=== PATIENT | female | born 1985 | race Caucasian/White ===

== ENCOUNTER 2024-03-13 22:32 | Inpatient (IN) | payer OTHER ==
[~2024-03-13] VITALS: Ht 157.5 cm; Wt 60.8 kg
[2024-03-13 23:28] LABS: BASOPHILS # (AUTO) 0.1 K/uL (0.0-0.2); BASOPHILS % (AUTO) 1.5 % (0.0-2.0); EOSINOPHILS # (AUTO) 0.1 K/uL (0.0-0.7); EOSINOPHILS % (AUTO) 2.1 % (0.0-6.0); HEMATOCRIT 32 % (33-45); HEMOGLOBIN 10.1 g/dL (11.5-14.8); LYMPHOCYTES # (AUTO) 1.2 K/uL (0.8-4.8); LYMPHOCYTES % (AUTO) 32.2 % (20.0-44.0); MEAN CORPUSCULAR HEMOGLOBIN 27 PG (26.0-33.0); MEAN CORPUSCULAR HGB CONC 31 g/dl (31.0-36.0); MEAN CORPUSCULAR VOLUME 86 fL (82-100); MONOCYTES # (AUTO) 0.2 K/uL (0.1-1.30); NEUTROPHILS # (AUTO) 2.2 K/uL (1.8-8.9); NEUTROPHILS % (AUTO) 58.2 % (43.0-81.0); PLATELET COUNT (AUTO) 218 K/uL (150-450); RED BLOOD CELL COUNT(AUTO) 3.74 MIL/uL (4.0-5.2); RED CELL DISTRIBUTION WIDTH 16.2 % (11.5-15.0); WHITE BLOOD COUNT (AUTO) 3.8 K/uL (4.3-11.0)
[2024-03-13 23:42] LABS: APPEARANCE,URINE CLEAR (CLEAR); BILIRUBIN,URINE 1+ (NEGATIVE); BLOOD, URINE NEGATIVE Ery/uL (NEGATIVE); COLOR,URINE YELLOW (YELLOW); KETONES,URINE NEGATIVE (NEGATIVE); LEUKOCYTE ESTERASE ,URINE TRACE (NEGATIVE); NITRITE, URINE NEGATIVE (NEGATIVE); PH,URINE 8.5 (5.0-8.0); PROTEIN,URINE NEGATIVE (NEGATIVE); UGLUCOSE NEGATIVE (NEGATIVE)
[2024-03-13 23:43] LABS: CARBON DIOXIDE 29 mmol/L (21-32); CHLORIDE 102 mmol/L (98-107); CREATININE 0.6 mg/dL (0.6-1.3); GLUCOSE 108 mg/dL (74-106); POTASSIUM 3.9 mmol/L (3.5-5.1); SODIUM SERUM 138 mmol/L (136-145); UREA NITROGEN, BLOOD 11 mg/dL (7-18)
[2024-03-13 23:44] LABS: PREGNANCY TEST URINE QUAL NEGATIVE (NEGATIVE)
[2024-03-13 23:55] LABS: AMPHETAMINE, URINE NEGATIVE (NEGATIVE); BARBITURATE, URINE NEGATIVE (NEGATIVE); CANNABINOID, URINE NEGATIVE (NEGATIVE); COCCAINE, URINE NEGATIVE (NEGATIVE); OPIATE, URINE NEGATIVE (NEGATIVE); PHENCYCLIDINE SCREEN,URINE NEGATIVE (NEGATIVE)
[2024-03-13 23:56] LABS: ALANINE AMINOTRANSFERASE 86 U/L (12-78); ALBUMIN 2.9 g/dL (3.4-5.0); ALCOHOL, BLOOD < 3 mg/dL (0-10); ALKALINE PHOSPHATASE 96 U/L (46-116); ASPARTATE AMINOTRANSFERASE 144 U/L (15-37); BILIRUBIN,TOTAL 1.1 mg/dL (0.2-1.0); NT-PRO BNP 3872 pg/mL (0-125); TOTAL PROTEIN, SERUM 6.8 g/dL (6.4-8.2)
[2024-03-13 23:56] LABS: BENZODIAZEPINE, URINE POSITIVE (NEGATIVE)
[2024-03-14 00:21] LABS: ADD URINE CULTURE NO; BACTERIA,URINE 1+ /HPF (None Seen); RBC,URINE NONE SEEN /HPF (0-2)
[2024-03-14] MEDS ORDERED: FUROSEMIDE 40 MG/4 ML VIAL ONE (02:26)
[2024-03-14] MEDS: FUROSEMIDE 40 MG/4 ML VIAL IV ONE (02:31)
[2024-03-14] MEDS ORDERED: IOHEXOL-350 100 ML VIAL IV ONE (02:48)
[2024-03-14 05:19] VITALS: BP 114/92; TEMP 98.4; O2SAT 93
[2024-03-14 05:24] VITALS: BP 114/92; TEMP 98.4; O2SAT 93
[2024-03-14] MEDS ORDERED: DILTIAZEM HCL 25 MG IV ONE (05:34)
[2024-03-14] MEDS: DILTIAZEM HCL 50 MG IV IV ONE (05:37)
[2024-03-14] MEDS ORDERED: MAGNESIUM HYDROXIDE 30 ML UDC PO PRN (06:00)
[2024-03-14] MEDS ORDERED: NITROGLYCERIN 0.4 MG/TAB BOTTLE SL PRN (06:00)
[2024-03-14] MEDS ORDERED: ONDANSETRON HCL/PF 4 MG/2 ML VIAL IVP PRN (06:00)
[2024-03-14] MEDS ORDERED: MAG HYDROX/AL HYDROX/SIMETH 30 ML UDC PO PRN (06:00)
[2024-03-14] MEDS ORDERED: ACETAMINOPHEN 325 MG TABLET PO PRN (06:00)
[2024-03-14] MEDS ORDERED: Z GUARD REMEDY 4 OZ OINT TP PRN (06:00)
[2024-03-14 07:41] LABS: BASOPHILS % (AUTO) 1.4 % (0.0-2.0); EOSINOPHILS # (AUTO) 0.1 K/uL (0.0-0.7); EOSINOPHILS % (AUTO) 1.9 % (0.0-6.0); HEMATOCRIT 34 % (33-45); HEMOGLOBIN 10.6 g/dL (11.5-14.8); LYMPHOCYTES # (AUTO) 0.6 K/uL (0.8-4.8); LYMPHOCYTES % (AUTO) 17.8 % (20.0-44.0); MEAN CORPUSCULAR HEMOGLOBIN 27 PG (26.0-33.0); MEAN CORPUSCULAR HGB CONC 31 g/dl (31.0-36.0); MEAN CORPUSCULAR VOLUME 86 fL (82-100); MONOCYTES # (AUTO) 0.2 K/uL (0.1-1.30); MONOCYTES % (AUTO) 5.4 % (2.0-12.0); NEUTROPHILS # (AUTO) 2.5 K/uL (1.8-8.9); NEUTROPHILS % (AUTO) 73.5 % (43.0-81.0); PLATELET COUNT (AUTO) 225 K/uL (150-450); RED BLOOD CELL COUNT(AUTO) 3.99 MIL/uL (4.0-5.2); RED CELL DISTRIBUTION WIDTH 16.2 % (11.5-15.0); WHITE BLOOD COUNT (AUTO) 3.4 K/uL (4.3-11.0)
[2024-03-14 08:00] VITALS: BP 110/80; TEMP 98.4; O2SAT 95
[2024-03-14 08:06] LABS: ALANINE AMINOTRANSFERASE 81 U/L (12-78); ALKALINE PHOSPHATASE 97 U/L (46-116); ASPARTATE AMINOTRANSFERASE 106 U/L (15-37); BILIRUBIN,DIRECT 0.5 mg/dL (0.0-0.2); BILIRUBIN,TOTAL 1.1 mg/dL (0.2-1.0); CALCIUM, SERUM 8.8 mg/dL (8.5-10.1); CARBON DIOXIDE 30 mmol/L (21-32); CHLORIDE 104 mmol/L (98-107); CREATININE 0.6 mg/dL (0.6-1.3); GLUCOSE 98 mg/dL (74-106); MAGNESIUM 1.6 mg/dL (1.8-2.4); NT-PRO BNP 3369 pg/mL (0-125); PHOSPHORUS 3.5 mg/dL (2.5-4.9); POTASSIUM 3.5 mmol/L (3.5-5.1); SODIUM SERUM 142 mmol/L (136-145); TOTAL PROTEIN, SERUM 6.9 g/dL (6.4-8.2); UREA NITROGEN, BLOOD 9 mg/dL (7-18)
[2024-03-14] MEDS: PANTOPRAZOLE 40 MG TABLET.DR PO SCH (08:28)
[2024-03-14] MEDS: ASPIRIN 81 MG TAB.CHEW PO SCH (08:28)
[2024-03-14] MEDS: FUROSEMIDE 20 MG/2 ML VIAL IV SCH (08:28)
[2024-03-14] MEDS: MAGNESIUM OXIDE 400 MG TABLET PO ONE (10:20)
[2024-03-14] MEDS: METOPROLOL TARTRATE 25 MG TABLET PO SCH (13:29)
[2024-03-14] MEDS ORDERED: VANCOMYCIN 1 GM in IV D5W 250 ML IV ONE (14:30)
[2024-03-14] MEDS: LEVOFLOXACIN 750 MG /D5W 150ML 150 ML IV SCH (15:51)
[2024-03-14] MEDS: ENOXAPARIN SODIUM 40 MG/0.4 ML DISP.SYRIN SQ SCH (17:30)
[2024-03-14] MEDS: VANCOMYCIN 1.5 GM in IV D5W 500 ML IV ONE (17:31)
[2024-03-14 20:00] VITALS: BP 105/89; TEMP 98.6; O2SAT 96
[2024-03-14] MEDS: diphenhydrAMINE HCL 50 MG/ML VIAL IV ONE (20:05)
[2024-03-14] MEDS ORDERED: CEPHALEXIN MONOHYDRATE 500 MG CAPSULE PO SCH (21:00)
[2024-03-14 21:36] VITALS: BP 107/74; TEMP 98.2; O2SAT 100
[2024-03-14] MEDS: VANCOMYCIN 1 GM in IV D5W 250ml IV SCH (23:48)
[2024-03-15 07:35] LABS: BASOPHILS # (AUTO) 0.1 K/uL (0.0-0.2); BASOPHILS % (AUTO) 1.7 % (0.0-2.0); EOSINOPHILS # (AUTO) 0.1 K/uL (0.0-0.7); EOSINOPHILS % (AUTO) 2.4 % (0.0-6.0); HEMATOCRIT 32 % (33-45); HEMOGLOBIN 10.2 g/dL (11.5-14.8); LYMPHOCYTES # (AUTO) 1.1 K/uL (0.8-4.8); LYMPHOCYTES % (AUTO) 29.8 % (20.0-44.0); MEAN CORPUSCULAR HEMOGLOBIN 27 PG (26.0-33.0); MEAN CORPUSCULAR HGB CONC 32 g/dl (31.0-36.0); MEAN CORPUSCULAR VOLUME 85 fL (82-100); MONOCYTES # (AUTO) 0.4 K/uL (0.1-1.30); MONOCYTES % (AUTO) 10.6 % (2.0-12.0); NEUTROPHILS % (AUTO) 55.5 % (43.0-81.0); PLATELET COUNT (AUTO) 233 K/uL (150-450); RED BLOOD CELL COUNT(AUTO) 3.79 MIL/uL (4.0-5.2); RED CELL DISTRIBUTION WIDTH 16.1 % (11.5-15.0); WHITE BLOOD COUNT (AUTO) 3.6 K/uL (4.3-11.0)
[2024-03-15 07:53] LABS: CALCIUM, SERUM 8.8 mg/dL (8.5-10.1); CREATININE 0.8 mg/dL (0.6-1.3); MAGNESIUM 1.4 mg/dL (1.8-2.4); PHOSPHORUS 4.9 mg/dL (2.5-4.9); POTASSIUM 3.4 mmol/L (3.5-5.1)
[2024-03-15 08:00] VITALS: BP 106/87; TEMP 97.7; O2SAT 96
[2024-03-15] MEDS: Magnesium 1GM/D5W 100ML PREMIX 100 ML IV SCH (10:08)
[2024-03-15] MEDS: SPIRONOLACTONE 25 MG TABLET PO SCH (10:08)
[2024-03-15] MEDS: POTASSIUM CHLORIDE 20 MEQ TAB.PRT.SR PO SCH (10:08)
[2024-03-15 16:26] VITALS: BP 104/78; TEMP 98.6; O2SAT 99
[2024-03-15] MEDS ORDERED: METOPROLOL TARTRATE 25 MG TABLET PO SCH (21:00)
[2024-03-16 20:06] LABS: *MYCOPLASMA PNEUMONIAE IgG 466 U/mL (0-99); *MYCOPLASMA PNEUMONIAE IgM <770 U/mL (0-769); LEGIONELLA PNEUMOPHILIA AB Non Reactive (Non Reactive)
== END 2024-03-15 16:40 | disposition left against medical advice (07) | DRG 291 ==
LOC: ER 22:35 → TELE 03-14 03:00 → MED 03-14 13:50
PROVIDERS: ADMIT Nurse Practitioner Acute Care; ATTEND Internal Medicine
DX: I11.0 Hypertensive heart disease with heart failure (principal); I50.23 Acute on chronic systolic (congestive) heart failure; I42.9 Cardiomyopathy, unspecified; Z78.9 Other specified health status; F17.210 Nicotine dependence, cigarettes, uncomplicated; Z56.0 Unemployment, unspecified; F15.11 Other stimulant abuse, in remission; Z53.29 Procedure and treatment not carried out because of patient's decision for other reasons
CPT/HCPCS: 36415; 71045-TC; 80048-TC; 80053-TC; 80076-TC; 80202-TC; 81001; 83735-TC; 83880; 84100-TC; 84443-TC; 84484-TC; 84703-TC; 85025-TC; 85378-TC; 86713; 86738; 87040-TC; 87081-TC; 87449; 87899; 93307-TC; A4223; G0378; G0480; J1200; J1650; J1940; J1956; J3370; J3371; J3475; J3490; J7050; J7060; Q9967